=== PATIENT | female | born 1990 | race Caucasian/White ===

== ENCOUNTER 2018-12-14 22:41 | Emergency (ER) | payer SELFPAY ==
[~2018-12-14] VITALS: Ht 160 cm; Wt 61.4 kg
[2018-12-14] MEDS ORDERED: MUCILIQ4 PO (23:04)
[2018-12-14] MEDS ORDERED: ALEV220T22 PO (23:04)
[2018-12-14 23:36] VITALS: BP 120/82
[2018-12-14] MEDS ORDERED: AZIT-12 PO (23:44)
[2018-12-14] MEDS ORDERED: AZITHROMYCIN 250 MG TAB PO ONE (23:45)
== END 2018-12-15 00:09 | disposition home or self-care (01) ==
LOC: M ED 22:41
DX: H66.93 Otitis media, unspecified, bilateral (principal); J02.9 Acute pharyngitis, unspecified